=== PATIENT | male | born 1975 | race American Indian/Alaskan Native ===

== ENCOUNTER 2017-12-29 11:53 | Emergency (ER) | payer MEDICAID ==
[2017-12-29 12:00] VITALS: BP 137/80; PULSE 75; RESP 18; TEMP 98.2; O2SAT 98
[2017-12-29] MEDS ORDERED: Ciprofloxacin 0.3% OPTH SOLN OD STA (12:28)
[2017-12-29] MEDS ORDERED: Fluorescein 1 mg Ophthalmic Strip OS STA (12:28)
[2017-12-29] MEDS ORDERED: Tetracaine 0.5% Ophth (OR ONLY) OU STA (12:28)
[2017-12-29] MEDS ORDERED: Fluorescein 1 mg Ophthalmic Strip ONE (12:35)
[2017-12-29] MEDS ORDERED: Tetracaine 0.5% Ophth (OR ONLY) ONE (12:35)
[2017-12-29] MEDS ORDERED: Ciprofloxacin 0.3% OPTH SOLN ONE (12:36)
--- NOTE | 2017-12-29 12:57 | C.PDOC ---
History Of Present Illness 42 y/o male presents to the ED complaining of left eye pain and redness since yesterday. Patient reports that yesterday he was walking outside and felt like something flew in his eye on the street. His tried to clean the eye but no foreign body was found. Pain is persistent, now associated with photophobia. Patient feels as if he cannot keep the eye open due to discomfort. Time Seen by Provider: 12/29/17 12:10 Chief Complaint (Nursing): Eye Problem History Per: Patient History/Exam Limitations: no limitations Onset/Duration Of Symptoms: Days Current Symptoms Are (Timing): Still Present Associated Symptoms: Pain, FB Sensation Past Medical History Reviewed: Historical Data, Nursing Documentation, Vital Signs Vital Signs: Last Vital Signs Temp 98.2 F 12/29/17 11:58 Pulse 75 12/29/17 11:58 Resp 18 12/29/17 11:58 BP 137/80 12/29/17 11:58 Pulse Ox 98 12/29/17 14:38 - Medical History PMH: No Chronic Diseases Family History: States: No Known Family Hx - Social History Hx Alcohol Use: No Hx Substance Use: No - Immunization History Hx Tetanus Toxoid Vaccination: No Hx Influenza Vaccination: No Hx Pneumococcal Vaccination: No Review Of Systems Except As Marked, All Systems Reviewed And Found Negative. Eyes: Positive for: Pain, Redness, Other (FB sensation). Negative for: Vision Change Neurological: Positive for: Other (photophobia) Physical Exam - Physical Exam Appears: Non-toxic, No Acute Distress Skin: Normal Color, Warm, Dry Head: Atraumatic, Normacephalic Eye(s): bilateral: PERRL, EOMI, left: Other (Significant conjunctival erythema) Nose: Normal Oral Mucosa: Moist Neck: Normal ROM, Supple Chest: Symmetrical Respiratory: No Accessory Muscle Use Neurological/Psych: Oriented x3, Normal Speech Additional Physical Exam Comments: Visual acuity performed: Left eye 30/20 Right eye 20/20 Examination with fluorescein reveals FB embedded; Appears round, small, at 12 o clock Attempted to remove foreign body with q-tip, which was unsuccessful ED Course And Treatment O2 Sat by Pulse Oximetry: 98 (RA) Pulse Ox Interpretation: Normal Progress Note: Attempted removal of foreign body unsuccessful. Patient treated with Cipro drops in the ED. Case discussed with Dr. Darrin Sharp who requests patient be sent directly to his office and he will evaluate patient today. Counseled patient regarding treatment plan. Will d/c for immediate ophthalmology follow-up. Disposition Counseled Patient/Family Regarding: Diagnosis, Need For Followup - Disposition Referrals: Darrin Sharp MD [Staff Provider] - Disposition: HOME/ ROUTINE Disposition Time: 12:55 Condition: STABLE Additional Instructions: Follow up with Court Of Appeals Judge now, he is expecting you to come. Return to ED if feel worse. Instructions: Foreign Body in Eye (DC) Forms: [employer] (Citizen [place]) - Clinical Impression Clinical Impression: Corneal foreign body - PA / [employer] INST[employer]ER / Resident Statement MD/DO has reviewed & agrees with the documentation as recorded. - Scribe Statement The provider has reviewed the documentation as recorded by the Scribe (Griselda Mendoza) All medical record entries made by the Scribe were at my direction and personally dictated by me. I have reviewed the chart and agree that the record accurately reflects my personal performance of the history, physical exam, medical decision making, and the department course for this patient. I have also personally directed, reviewed, and agree with the discharge instructions and disposition.
== END 2017-12-29 13:14 | disposition home or self-care (01) ==
LOC: C.ER 11:53
DX: T15.02XA Foreign body in cornea, left eye, initial encounter (principal); X58.XXXA Exposure to other specified factors, initial encounter